=== PATIENT | male | born 1960 | race Hispanic/Latino ===

== ENCOUNTER 2021-11-08 14:39 | Inpatient (IN) | payer OTHER ==
[~2021-11-08] VITALS: Ht 172.7 cm; Wt 84.4 kg
[2021-11-08 15:33] VITALS: BP 154/111
[2021-11-08 16:36] LABS: BASOPHILS % (AUTO) 0.5 % (0.0-5.0); HEMATOCRIT 48.1 % (42-54); LYMPHOCYTES % (AUTO) 17.6 % (21.0-51.0); MEAN CORPUSCULAR HEMOGLOBIN 30.3 pg (27.0-33.0); MEAN CORPUSCULAR HGB CONC 34.1 g/dL (32.0-36.0); MEAN CORPUSCULAR VOLUME 88.9 fL (79-99); MONOCYTES % (AUTO) 8.4 % (3.0-13.0); NEUTROPHILS % (AUTO) 72.1 % (40.0-77.0); PLATELET COUNT (AUTO) 145 K/uL (130-400); RED BLOOD CELL COUNT(AUTO) 5.41 MIL/uL (4.50-6.20); RED CELL DISTRIBUTION WIDTH 13.3 % (11.0-15.5); WHITE BLOOD COUNT (AUTO) 11.1 K/uL (4.8-10.8)
[2021-11-08 16:47] LABS: HEMOGLOBIN A1C 7.4 % (4.0-6.0)
[2021-11-08 16:48] LABS: INR 1.05 (0.85-1.15); PROTHROMBIN TIME 11.4 SEC (9.6-11.6)
[2021-11-08 16:50] LABS: PARTIAL THROMBOPLASTIN TIME 29.3 SEC (26.3-35.5)
[2021-11-08 16:58] LABS: ALBUMIN 3.5 g/dL (3.5-5.0); BILIRUBIN,TOTAL 1.8 mg/dL (0.2-1.0); POTASSIUM 3.7 mmol/L (3.5-5.1); TOTAL PROTEIN, SERUM 7.6 g/dL (6.0-8.3)
[2021-11-08 17:11] LABS: CRP QUANTITATIVE 153.9 mg/L (0.00-9.0); MAGNESIUM 2.1 mg/dL (1.80-2.40); THYROID STIMULATING HORMONE 2.46 uIU/mL (0.36-3.74)
[2021-11-08 17:39] LABS: ERYTHROCYTE SEDIMENTATION RATE 20 MM/HR (0-20)
[2021-11-08] MEDS: ZOSYN 3.375GM +NS 50ML IV SCH (17:51)
[2021-11-08 19:12] VITALS: BP 141/90
[2021-11-08] MEDS ORDERED: DILTIAZEM 125MG+100 ML NS 125 ML IV SCH (21:00)
[2021-11-09 00:12] VITALS: BP 147/95
[2021-11-09] MEDS ORDERED: 0.9%NACL 50ML 50 ML IV ONE (00:27)
[2021-11-09] MEDS: ZOSYN 3.375GM +NS 50ML IV SCH ×2 (00:35→08:00)
[2021-11-09 03:12] VITALS: BP 149/102
[2021-11-09 08:00] VITALS: BP 157/101
[2021-11-09 08:23] LABS: BASOPHILS % (AUTO) 0.7 % (0.0-5.0); HEMATOCRIT 47.5 % (42-54); LYMPHOCYTES % (AUTO) 24.1 % (21.0-51.0); MEAN CORPUSCULAR HEMOGLOBIN 30.2 pg (27.0-33.0); MEAN CORPUSCULAR HGB CONC 33.7 g/dL (32.0-36.0); MEAN CORPUSCULAR VOLUME 89.8 fL (79-99); MONOCYTES % (AUTO) 8.4 % (3.0-13.0); NEUTROPHILS % (AUTO) 64.2 % (40.0-77.0); PLATELET COUNT (AUTO) 141 K/uL (130-400); RED BLOOD CELL COUNT(AUTO) 5.29 MIL/uL (4.50-6.20); RED CELL DISTRIBUTION WIDTH 13.2 % (11.0-15.5); WHITE BLOOD COUNT (AUTO) 9.6 K/uL (4.8-10.8)
[2021-11-09 08:41] LABS: CREATININE 1.1 mg/dL (0.5-1.5)
[2021-11-09] MEDS ORDERED: HYDROCODONE/ACETAMINOPHEN 5/325 MG TAB PO PRN (11:00)
[2021-11-09] MEDS ORDERED: ACETAMINOPHEN 500 MG TABLET PO PRN (11:00)
[2021-11-09] MEDS: INSULIN HUMULIN R 100 UNIT/ML 3ML SQ SCH ×3 (11:30→21:39)
[2021-11-09] MEDS: AMP/SULBAC 3GM+NS 100ML 100 ML IV SCH ×3 (11:40→23:00)
[2021-11-09] MEDS ORDERED: METOPROLOL TARTRATE 25 MG TAB PO ONE (11:55)
[2021-11-09 12:00] VITALS: BP 154/95
[2021-11-09] MEDS: METOPROLOL TARTRATE 25 MG TAB PO SCH ×2 (13:51→20:21)
[2021-11-09 16:00] VITALS: BP 153/92
[2021-11-09 19:12] VITALS: BP 184/116
[2021-11-09] MEDS: FAMOTIDINE 20MG TAB PO SCH (20:21)
[2021-11-09] MEDS: APIXABAN 5 MG TABLET PO SCH (20:21)
[2021-11-09] MEDS ORDERED: ENOXAPARIN SODIUM 40 MG/0.4 ML SYRINGE SQ SCH (21:00)
[2021-11-10 00:12] VITALS: BP 135/100
[2021-11-10 03:12] VITALS: BP 153/86
[2021-11-10] MEDS: AMP/SULBAC 3GM+NS 100ML 100 ML IV SCH (04:06)
[2021-11-10 04:58] LABS: HEMATOCRIT 46.6 % (42-54); MEAN CORPUSCULAR HEMOGLOBIN 30.4 pg (27.0-33.0); MEAN CORPUSCULAR HGB CONC 33.7 g/dL (32.0-36.0); MEAN CORPUSCULAR VOLUME 90.3 fL (79-99); RED BLOOD CELL COUNT(AUTO) 5.16 MIL/uL (4.50-6.20); RED CELL DISTRIBUTION WIDTH 13.2 % (11.0-15.5); WHITE BLOOD COUNT (AUTO) 8.4 K/uL (4.8-10.8)
[2021-11-10 05:15] LABS: CREATININE 0.9 mg/dL (0.5-1.5); POTASSIUM 3.7 mmol/L (3.5-5.1)
[2021-11-10] MEDS: INSULIN HUMULIN R 100 UNIT/ML 3ML SQ SCH (05:17)
[2021-11-10 08:00] VITALS: BP 160/90
[2021-11-10] MEDS: APIXABAN 5 MG TABLET PO SCH (08:06)
[2021-11-10] MEDS: METOPROLOL TARTRATE 25 MG TAB PO SCH ×2 (08:07→08:16)
[2021-11-10] MEDS: FAMOTIDINE 20MG TAB PO SCH (08:07)
[2021-11-10] MEDS ORDERED: LOSARTAN 25 MG TABLET PO SCH ×2 (09:00)
[2021-11-10] MEDS ORDERED: FAMO20TA8 PO (09:01)
[2021-11-10] MEDS ORDERED: METF-444 PO (09:01)
[2021-11-10] MEDS ORDERED: APIX5TAB PO (09:01)
[2021-11-10] MEDS ORDERED: LOSA50TA64 PO (09:01)
[2021-11-10] MEDS ORDERED: AMOX1TAB16 PO (09:01)
[2021-11-10] MEDS ORDERED: DAPA10TA PO (09:01)
[2021-11-10] MEDS ORDERED: METO50TA18 PO (09:01)
== END 2021-11-10 11:01 | disposition home or self-care (01) | DRG 603 ==
LOC: 2DH 16:04
PROVIDERS: ADMIT Hospitalist; ATTEND Hospitalist
DX: L03.114 Cellulitis of left upper limb (principal); M62.82 Rhabdomyolysis; I50.22 Chronic systolic (congestive) heart failure; W54.0XXA Bitten by dog, initial encounter; M65.9 Synovitis and tenosynovitis, unspecified; I48.0 Paroxysmal atrial fibrillation; Z79.01 Long term (current) use of anticoagulants; Z80.9 Family history of malignant neoplasm, unspecified; E66.9 Obesity, unspecified; E11.9 Type 2 diabetes mellitus without complications; F17.200 Nicotine dependence, unspecified, uncomplicated; Z79.899 Other long term (current) drug therapy; I11.0 Hypertensive heart disease with heart failure; Z68.28 Body mass index [BMI] 28.0-28.9, adult; Y93.89 Activity, other specified; Y92.89 Other specified places as the place of occurrence of the external cause; Y99.8 Other external cause status; S61.452A Open bite of left hand, initial encounter
CPT/HCPCS: 36415; 76705; 80048; 80053; 82550; 82948; 83036; 83735; 84145; 84443; 84484; 85025; 85027; 85610; 85651; 85730; 86140; 93306; 93356; G0378; J0295; J1815; J2543; J3490

== ENCOUNTER → 2022-01-17 | Outpatient (CLI) | payer OTHER ==
[~2022-01-17] MED LIST: AMOX1TAB16 PO; APIX5TAB PO; DAPA10TA PO; FAMO20TA8 PO; LOSA50TA64 PO; METF-444 PO; METO50TA18 PO
[2022-01-17 12:22] LABS: BASOPHILS % (AUTO) 1.3 % (0.0-5.0); EOSINOPHILS % (AUTO) 8.7 % (0.0-8.0); HEMATOCRIT 47.8 % (42-54); LYMPHOCYTES % (AUTO) 30.1 % (21.0-51.0); MEAN CORPUSCULAR HEMOGLOBIN 30.6 pg (27.0-33.0); MEAN CORPUSCULAR HGB CONC 34.3 g/dL (32.0-36.0); MEAN CORPUSCULAR VOLUME 89.2 fL (79-99); MONOCYTES % (AUTO) 6.8 % (3.0-13.0); NEUTROPHILS % (AUTO) 52.6 % (40.0-77.0); PLATELET COUNT (AUTO) 133 K/uL (130-400); RED BLOOD CELL COUNT(AUTO) 5.36 MIL/uL (4.50-6.20); RED CELL DISTRIBUTION WIDTH 12.5 % (11.0-15.5); WHITE BLOOD COUNT (AUTO) 8.6 K/uL (4.8-10.8)
[2022-01-17 12:37] LABS: CREATININE 1.1 mg/dL (0.5-1.5); POTASSIUM 4.7 mmol/L (3.5-5.1)
== END | disposition home or self-care (01) ==
LOC: LAB 09:08
PROVIDERS: ATTEND Internal Medicine Cardiovascular Disease
DX: I48.0 Paroxysmal atrial fibrillation (principal); I50.22 Chronic systolic (congestive) heart failure; D68.59 Other primary thrombophilia
CPT/HCPCS: 36415; 80048; 83735; 85025

== ENCOUNTER → 2022-05-25 | Outpatient (CLI) | payer OTHER ==
[2022-05-25 12:15] LABS: BASOPHILS % (AUTO) 1.3 % (0.0-5.0); EOSINOPHILS % (AUTO) 6.5 % (0.0-8.0); HEMATOCRIT 51.7 % (42-54); LYMPHOCYTES % (AUTO) 35.6 % (21.0-51.0); MEAN CORPUSCULAR HEMOGLOBIN 30.9 pg (27.0-33.0); MEAN CORPUSCULAR HGB CONC 33.7 g/dL (32.0-36.0); MEAN CORPUSCULAR VOLUME 91.8 fL (79-99); MONOCYTES % (AUTO) 7.6 % (3.0-13.0); NEUTROPHILS % (AUTO) 48.7 % (40.0-77.0); PLATELET COUNT (AUTO) 162 K/uL (130-400); RED BLOOD CELL COUNT(AUTO) 5.63 MIL/uL (4.50-6.20); RED CELL DISTRIBUTION WIDTH 12.6 % (11.0-15.5); WHITE BLOOD COUNT (AUTO) 9.1 K/uL (4.8-10.8)
[2022-05-25 12:41] LABS: CREATININE 1.1 mg/dL (0.5-1.5); POTASSIUM 4.3 mmol/L (3.5-5.1); TOTAL PROTEIN, SERUM 7.8 g/dL (6.0-8.3)
[2022-05-25 12:45] LABS: B-TYPE NATRIURETIC PEPTIDE 116 pg/mL (0-100)
== END | disposition home or self-care (01) ==
LOC: LAB 08:27
PROVIDERS: ATTEND Internal Medicine Cardiovascular Disease
DX: I50.22 Chronic systolic (congestive) heart failure (principal); E78.5 Hyperlipidemia, unspecified; Z79.01 Long term (current) use of anticoagulants
CPT/HCPCS: 36415; 80053; 80061; 83880; 85025

== ENCOUNTER → 2022-07-19 | Outpatient (CLI) | payer OTHER ==
[2022-07-19 13:07] LABS: POTASSIUM 4.4 mmol/L (3.5-5.1)
== END | disposition home or self-care (01) ==
LOC: LAB 10:09
PROVIDERS: ATTEND Internal Medicine Cardiovascular Disease
DX: I50.22 Chronic systolic (congestive) heart failure (principal); I48.19 Other persistent atrial fibrillation; E78.2 Mixed hyperlipidemia; E11.59 Type 2 diabetes mellitus with other circulatory complications
CPT/HCPCS: 36415; 80048